=== PATIENT | female | born 1950 | race Caucasian/White ===

== ENCOUNTER 2022-04-12 12:42 | Outpatient (CLI) | payer MEDICARE, OTHER | END 2022-04-12 12:43 | disposition home or self-care (01) | LOC: CT 12:42 | PROVIDERS: ATTEND Neurological Surgery | DX: S06.5X9A Traumatic subdural hemorrhage with loss of consciousness of unspecified duration, initial encounter (principal) | CPT/HCPCS: 70450 ==

== ENCOUNTER 2023-06-27 13:01 | Outpatient (CLI) | payer MEDICARE, OTHER ==
[2023-06-27 15:17] LABS: Hematocrit 39.8 % (34.9-44.5); Hemoglobin 13.2 g/dL (12.0-15.5); Mean Corpuscular HGB CONC 33.2 g/dL (32.0-36.0); Mean Corpuscular Hemoglobin 33.5 pg (27.0-33.0); Mean Platelet Volume 10.2 fl (7.4-10.4); Platelet Count 240 10x3/uL (150-450); RBC Distribution Width 12.5 % (11.5-14.5); Red Blood Cell (RBC) Count 3.94 10x6/uL (3.90-5.03); White Blood Cell (WBC) Count 7.4 10x3/uL (3.5-10.5)
[2023-06-27 15:20] LABS: PTT 29.7 sec (22.0-33.0); Prothrombin Time 10.7 sec (9.5-12.1)
== END 2023-06-27 13:02 | disposition home or self-care (01) ==
LOC: LABBT 13:01
PROVIDERS: ATTEND Neurological Surgery
DX: Z01.812 Encounter for preprocedural laboratory examination (principal); M50.10 Cervical disc disorder with radiculopathy, unspecified cervical region; M50.00 Cervical disc disorder with myelopathy, unspecified cervical region; M50.021 Cervical disc disorder at C4-C5 level with myelopathy; M50.022 Cervical disc disorder at C5-C6 level with myelopathy; M50.023 Cervical disc disorder at C6-C7 level with myelopathy
CPT/HCPCS: 85027; 85610; 85730

== ENCOUNTER 2023-06-30 06:03 | Day surgery (SDC) | payer MEDICARE, OTHER ==
[2023-06-27 13:32] VITALS: BMI 33.5
[2023-06-30] MEDS ORDERED: fentaNYL 50 mcg/mL 1 mL Vial ONE ×7 (08:46→13:55)
[2023-06-30] MEDS ORDERED: Midazolam HCl 2 mg/2 ml Vial ONE (08:46)
[2023-06-30] MEDS ORDERED: Vancomycin 1 GM VIAL ONE (08:51)
[2023-06-30] MEDS ORDERED: Promethazine HCl 25 MG/ML VIAL IM PRN (08:51)
[2023-06-30] MEDS ORDERED: HYDROmorphone 2 MG/ML VIAL SLOW IVP PRN (08:51)
[2023-06-30] MEDS ORDERED: Ondansetron HCl/PF 4 MG/2 ML Vial IVP PRN (08:51)
[2023-06-30] MEDS ORDERED: Thrombin 5000 UNITS/5 ML VIAL ONE (08:51)
[2023-06-30] MEDS ORDERED: Sodium Chloride 0.9% 100 ML ONE (09:23)
[2023-06-30] MEDS ORDERED: CEFAZOLIN 2 GM VIAL ONE (09:23)
[2023-06-30] MEDS ORDERED: Rocuronium Bromide 10 MG/ML (10ML VIAL) ONE (09:39)
[2023-06-30] MEDS ORDERED: PROPOFOL 200 MG/20 ML VIAL ONE (09:39)
[2023-06-30] MEDS ORDERED: Lidocaine 1% PF 5 ML VIAL ONE (09:39)
[2023-06-30] MEDS ORDERED: Ondansetron PF 4 MG/2 ML Vial ONE (09:39)
[2023-06-30] MEDS ORDERED: PHENYLEPHRINE-NS 100 MCG/ML 10 ML SYRINGE ONE (09:39)
[2023-06-30] MEDS ORDERED: SUGAMMADEX SODIUM 200 MG/2 ML VIAL ONE (10:22)
[2023-06-30] MEDS ORDERED: HYDROcodone/Acetaminophen 5/325 mg Tablet ONE (15:18)
== END 2023-06-30 16:15 | disposition home or self-care (01) ==
LOC: SDC 06:03 → EDSTATUS 13:30 → SDC 16:15
PROVIDERS: ATTEND Neurological Surgery
PROC: 0RG20A0 Fusion of 2 or more Cervical Vertebral Joints with Interbody Fusion Device, Anterior Approach, Anterior Column, Open Approach (ICD-10-PCS; principal; 2023-06-30)
DX: M50.021 Cervical disc disorder at C4-C5 level with myelopathy (principal); M50.022 Cervical disc disorder at C5-C6 level with myelopathy; M50.023 Cervical disc disorder at C6-C7 level with myelopathy; M50.121 Cervical disc disorder at C4-C5 level with radiculopathy; M50.122 Cervical disc disorder at C5-C6 level with radiculopathy; M50.123 Cervical disc disorder at C6-C7 level with radiculopathy
CPT/HCPCS: 20930; 20936; 22551; 22552 ×2; 22853 ×3; A4314; C1713 ×4; J3010; J2250; J2405; J2704; J3370; J3490